=== PATIENT | male | born 1960 | race Caucasian/White ===

== ENCOUNTER 2021-09-12 07:17 | Outpatient (CLI) | payer OTHER, SELFPAY ==
--- NOTE | 2021-09-12 11:00 | MR_ITS ---
WS: [id number] MRI HEAD WITHOUT CONTRAST TECHNIQUE: Sagittal T1, T2 axial, T2 axial FLAIR, axial and coronal T1 images, axial susceptibility w eighted imaging, axial diffusion weighted images, and coronal T2 images were obtained. CLINICAL INFORMATION: R29.818 - Other symptoms and signs involving the nervous ... COMPARISON: CT FINDINGS: No evidence of restricted diffusion to suggest acute ischemia. Ventricular system and basal cisterns are patent. Mild small vessel changes. Mild parenchymal volume loss. Small vessel changes in the adan . Normal posterior fossa. Normal vascular flow voids at the skull base. No extra-axial fluid collecti ons. No evidence of mass or mass effect. Chronic lacunar infarct RIGHT thalamus. Mild mucosal thickening in the paranasal sinuses. Mastoid air cells are well aerated. Normal optic chiasm and pituitary infundibulum. Normal cavernous sinuses and Meckel's cave. Mild to moderate symmetric atrophy temporal lobes and hippocampal formations. No hemo siderin on susceptibly weighted images. MR/MR head wo con* [id number] IMPRESSION: 1. No evidence of restricted diffusion to suggest acute ischemia. 2. Mild small vessel changes with mild parenchymal volume loss. 3. Chronic lacunar infarct RIGHT thalamus. 4. No hemosiderin on susceptibly weighted images. 5. Mild to moderate symmetric atrophy temporal lobes and hippocampal formation s.
== END 2021-09-12 07:18 | disposition home or self-care (01) ==
LOC: RAD 07:18
PROVIDERS: PCP Nurse Practitioner Family; Visit Provider Nurse Practitioner
DX: R29.818 Other symptoms and signs involving the nervous system (principal)
CPT/HCPCS: 70551

== ENCOUNTER → 2022-12-13 11:21 | Outpatient (BNVA) | payer OTHER, SELFPAY | PROVIDERS: PCP Nurse Practitioner Family; Visit Provider Nurse Practitioner Family | DX: M70.20 Olecranon bursitis, unspecified elbow (principal); M54.9 Dorsalgia, unspecified; M53.87 Other specified dorsopathies, lumbosacral region | CPT/HCPCS: 87070; 87077; 87184; 89051 ==

== ENCOUNTER → 2022-12-14 18:22 | Outpatient (BNVA) | payer OTHER, SELFPAY | PROVIDERS: PCP Nurse Practitioner Family; Visit Provider Nurse Practitioner Family | DX: M70.20 Olecranon bursitis, unspecified elbow (principal) | CPT/HCPCS: 80503 ==

== ENCOUNTER 2023-04-27 06:59 | Outpatient (CLI) | payer BC, SELFPAY ==
--- NOTE | 2023-04-27 07:00 | MR_ITS ---
WS: [id number] MRI LUMBAR SPINE NONCONTRAST HISTORY: Chronic back pain. COMPARISON: None available. TECHNIQUE: Sagittal and axial multisequence imaging is submitted. 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 Normal lumbar alignment with no compression fractures or marrow edema. Very mild disc desiccation throughout the lumbar spine. Conus terminates normally at L1-2 disc level. L1-L2: Diffuse annular disc bulging with ligamentum flavum and facet arthritis. Disc and osteophyte e ncroachment causing at least moderate LEFT foraminal stenosis. Mild stenosis on the RIGHT. L2-L3: Diffuse annular disc bulging with bilateral foraminal disc protrusions. The RIGHT disc protrus ion is slightly greater than the LEFT. Severe ligamentum flavum and facet arthritis. Fluid in the fac et joints. Mild central with bilateral subarticular recess and foraminal stenosis. Slightly greater s tenosis involving the LEFT foramen and slightly greater encroachment upon the LEFT traversing L3 nerv e root. L3-L4: Diffuse annular disc bulging with moderate ligamentum flavum and facet arthritis. Encroachment upon the subarticular recesses. Moderate RIGHT and mild LEFT foraminal stenosis. L4-L5: Diffuse annular disc bulging with severe RIGHT and moderate LEFT ligamentum flavum and facet a rthritis. There is disc contacting the traversing L5 nerve roots. Moderate RIGHT and moderate to mariam re LEFT foraminal stenosis and subarticular recess stenosis. L5-S1: Mild disc bulging with a central disc protrusion. Very slight contact on the S1 nerve roots. B ilateral facet arthritis. Paravertebral soft tissues are normal. IMPRESSION: 1. Multilevel stenoses with facet and ligamentum flavum hypertrophy throughout the lumbar spine. 2. L1-2: Moderate LEFT and mild RIGHT foraminal stenosis due to disc and osteophyte disease. 3. L2-3: Bilateral annular disc bulging with bilateral foraminal disc protrusions. Severe ligamentum flavum and facet joint arthritis. Mild central with bilateral subarticular recess and foraminal sten osis. Slightly greater stenosis LEFT foramen and disc contacts the traversing L3 nerve root. 4. L3-4: Moderate RIGHT and mild LEFT foraminal stenosis and disc encroachment upon the traversing L 4 nerve roots. 5. L4-5: Severe RIGHT and moderate LEFT ligamentum flavum and facet arthritis. Disc contacts the tra versing L5 nerve roots. Moderate RIGHT and moderate to severe LEFT foraminal stenosis and subarticula r recess stenosis. 6. L5-S1: Minimal disc central protrusion contacts the S1 nerve roots. Bilateral facet arthritis.
--- NOTE | 2023-04-27 07:45 | MR_ITS ---
WS: [id number] MRI CERVICAL SPINE NONCONTRAST HISTORY: M53.87 - Other specified dorsopathies, lumbosacral region COMPARISON: None available. Technique: Multiplanar, multisequence noncontrast imaging of the cervical spine. C5 anterolisthesis by 2 mm. Disc spaces are significantly narrowed throughout the cervical spine. End plate osteophytes. No fractures or marrow edema. Signal within the cervical cord is normal. Visualized posterior fossa is unremarkable. Craniocervical junction, C1 and C2 relationship, odontoid process and soft tissues are normal. Marrow edema in the RIGHT articular facet of C3. C2-C3: Diffuse disc bulging with a tiny central disc protrusion. No stenosis. C3-C4: Marked annular disc bulging, osteophytic ridging and a moderate central disc protrusion. Moder ate central and bilateral foraminal stenosis. There is increased T2 signal involving the RIGHT facet joint and fluid in the facet joint. C4-C5: Diffuse disc bulging with marked osteophytic ridging. Larger disc osteophyte complex in the LE FT foramen displacing the exiting nerve root posteriorly. There is moderate central and RIGHT foramin al stenosis with severe LEFT foraminal stenosis and mild facet arthritis. C5-C6: Mild annular disc bulging, marked facet arthritis and osteophytic ridging. Mild central and bi lateral foraminal stenosis, LEFT greater than RIGHT. C6-C7: Marked annular disc bulging, osteophytic ridging and facet arthritis. Disc osteophyte complexe s in the foramina. Severe central, bilateral foraminal stenosis. C7-T1: Mild annular disc bulging. Mild osteophytic ridging. Paraspinal soft tissue are normal. Additional disc bulging encroaching upon the ventral thecal sac is noted at T1-2 and T2-3. IMPRESSION: 1. Multilevel advanced degenerative changes throughout the cervical spine. 2. C3-4: Moderate central and bilateral foraminal stenosis due to disc osteophyte disease. 3. Marrow edema in the RIGHT articular facet of C3 with acute synovitis involving the C3-4 facet sanford nt on the RIGHT. 4. C4-5: Moderate central and RIGHT foraminal stenosis with severe LEFT foraminal stenosis. Large di sc osteophyte complex in the LEFT foramen. 5. C5-6: Mild central and bilateral foraminal stenosis, LEFT greater than RIGHT. 6. C6-7: Severe central and bilateral foraminal stenosis due to disc and osteophyte disease.
== END 2023-04-27 07:00 | disposition home or self-care (01) ==
LOC: RAD 06:59
PROVIDERS: PCP Nurse Practitioner Family; Visit Provider Nurse Practitioner Family
DX: M53.87 Other specified dorsopathies, lumbosacral region (principal); M21.372 Foot drop, left foot; M54.12 Radiculopathy, cervical region; G89.29 Other chronic pain; M48.061 Spinal stenosis, lumbar region without neurogenic claudication; M51.26 Other intervertebral disc displacement, lumbar region; M47.896 Other spondylosis, lumbar region; M47.897 Other spondylosis, lumbosacral region; M51.27 Other intervertebral disc displacement, lumbosacral region; M50.31 Other cervical disc degeneration, high cervical region; M48.02 Spinal stenosis, cervical region; M25.78 Osteophyte, vertebrae
CPT/HCPCS: 72141; 72148